=== PATIENT | male | born 1975 | race Caucasian/White ===

== ENCOUNTER 2017-01-01 20:09 | Emergency (ER) | payer SELFPAY ==
[~2017-01-01] VITALS: Ht 185.4 cm; Wt 149.7 kg
[~2017-01-01 20:09] MED LIST: AMIT10TA PO; DICL100T PO; HYDR-971 PO; NAPR500T PO; OXYC5CAP3 PO; PANT40TA5 PO
[2017-01-01 20:14] VITALS: BP 151/103
[2017-01-01] MEDS ORDERED: HYDROCODONE/APAP 5/325MG TABLET. PO ONE (21:00)
[2017-01-01] MEDS ORDERED: HYDR-971 PO (21:02)
[2017-01-01] MEDS ORDERED: CLIN-44 PO (21:02)
--- NOTE | 2017-01-01 21:02 | PHYS DOC ---
Past Medical History Past Medical History: Fibromyalgia, Gallstones, GERD, Migraines, Other Additional Past Medical Histor: chronic knee pain Past Surgical History: Cholecystectomy, Other Smoking: Less than 1pk/day Alcohol Use: None Drug Use: None Adult General Chief Complaint Chief Complaint: DENTAL PROBLEM HPI HPI Patient is a 41 year old male who presents with right mandible or dental pain and swelling starting today. He has a history of poor dentition with dental decay. He denies any fevers today. His PCP is Dr. Price. He is unsure of his dentist's name. Review of Systems Review of Systems Constitutional: Denies fever or chills. [] Eyes: Denies change in visual acuity, redness, or eye pain. [] HENT: Denies nasal congestion or sore throat. Reports dental pain and swelling and right ear pain. Integument: Denies rash or skin lesions. [] Neurologic: Denies headache, focal weakness or sensory changes. [] Allergies Allergies Allergies Coded Allergies Type Severity Reaction Last Updated Verified sertraline Allergy Intermediate Hives 10/12/16 Yes Physical Exam Physical Exam Constitutional: Well developed, well nourished, no acute distress, non-toxic appearance. [] HENT: Normocephalic, atraumatic, bilateral external ears normal, oropharynx moist, no oral exudates, nose normal. Bilateral TMs without erythema or bulging. There is no posterior pharyngeal erythema or tonsillar edema. There is widespread dental decay with multiple previously extracted teeth. There is gingival edema without dental abscess of the right mandible. Eyes: PERRLA, EOMI, conjunctiva normal, no discharge. [] Neck: Normal range of motion, no tenderness, supple, no stridor. [] Skin: Warm, dry, no erythema, no rash. [] Neurologic: Alert and oriented X 3, normal motor function, normal sensory function, no focal deficits noted. [] Psychologic: Affect normal, judgement normal, mood normal. [] Current Patient Data Vital Signs Vital Signs Date Time Temp Pulse Resp B/P Pulse Ox O2 Delivery O2 Flow Rate FiO2 01/01/17 20:14 98.8 94 18 97 Room Air 98.8 EKG EKG [] Radiology/Procedures Radiology/Procedures [] Course & Med Decision Making Course & Med Decision Making Pertinent Labs and Imaging studies reviewed. (See chart for details) [] Dragon Disclaimer Dragon Disclaimer This electronic medical record was generated, in whole or in part, using a voice recognition dictation system. Departure Departure Impression: Primary Impression: Gingival abscess Disposition: 01 HOME, SELF-CARE Condition: STABLE Referrals: SAMIRA PRICE DO (PCP) Patient Instructions: Dental Abscess Additional Instructions: Please complete all the prescribed antibiotics, even if your tooth is feeling better. Please take the prescribed pain medication as directed. Do not drive or operate heavy machinery while taking pain medication. Please follow-up with your dentist as soon as possible. Return to the emergency department if you have any new or concerning symptoms. Scripts Hydrocodone/Apap 5-325 (Ventura 5-325 Tablet)1 Each Tablet1 Tab PO PRN Q6HRS PRN PAIN #20 TAB Prov:KAELYN BYERS 01/01/17 Clindamycin Hcl 150 Mg Capsule2 Cap PO QID 10 Days Prov:KAELYN BYERS 01/01/17 KAELYN BYERS Jan 01, 2017 21:02
== END 2017-01-01 21:22 | disposition home or self-care (01) ==
LOC: ER 20:09
DX: K05.219 Aggressive periodontitis, localized, unspecified severity (principal); M79.7 Fibromyalgia; F17.200 Nicotine dependence, unspecified, uncomplicated; Z88.8 Allergy status to other drugs, medicaments and biological substances
CPT/HCPCS: 99283

== ENCOUNTER 2017-02-13 18:04 | Emergency (ER) | payer SELFPAY ==
[~2017-02-13] VITALS: Ht 185.4 cm; Wt 145.1 kg
[~2017-02-13 18:04] MED LIST changes: +CLIN-44 PO
[2017-02-13 18:18] VITALS: BP 137/90
[2017-02-13] MEDS ORDERED: NAPR500T3 PO (18:43)
[2017-02-13] MEDS ORDERED: CYCL10TA2 PO (18:43)
--- NOTE | 2017-02-13 18:43 | PHYS DOC ---
Past Medical History Past Medical History: Fibromyalgia, Gallstones, GERD, Migraines, Other Additional Past Medical Histor: chronic knee pain Past Surgical History: Cholecystectomy, Other Alcohol Use: None Drug Use: None Adult General Chief Complaint Chief Complaint: SHOULDER INJURY [facility] HPI Patient is a 41 year old male presents emergency department stating that he is having right shoulder pain. He has been seen here and to previous episodes and 2016 for right shoulder pain and discomfort. Patient states that he was trying to pull himself away from the table impression himself up when he developed the pain and discomfort. He states that the pain is located in the right shoulder to clavicle area into the upper back area. He states that he had tried to take cyclobenzaprine for a few days in which she states did not help. It only been taking them twice a day. He states that he take naproxen for 3 days without relief as well. Patient denies any previous injury or discomfort with the shoulder in the past. He denies any numbness or tingling into the lower extremities. He has equal strength in sharepoint manager bilaterally. Patient with good sensation noted. Patient is right-hand dominant. Review of Systems Review of Systems Constitutional: Denies fever or chills [] Eyes: Denies change in visual acuity, redness, or eye pain [] HENT: Denies nasal congestion or sore throat [] Respiratory: Denies cough or shortness of breath [] Cardiovascular: No additional information not addressed in HPI [] GI: Denies abdominal pain, nausea, vomiting, bloody stools or diarrhea [] : Denies dysuria or hematuria [] Musculoskeletal: Denies back pain. C/o right shoulder pain Integument: Denies rash or skin lesions [] Neurologic: Denies headache, focal weakness or sensory changes [] Allergies Allergies Allergies Coded Allergies Type Severity Reaction Last Updated Verified No Known Drug Allergies 02/13/17 No Physical Exam Physical Exam Constitutional: Well developed, well nourished, no acute distress, non-toxic appearance. [] HENT: Normocephalic, atraumatic, bilateral external ears normal, oropharynx moist, no oral exudates, nose normal. [] Eyes: PERRLA, EOMI, conjunctiva normal, no discharge. [] Neck: Normal range of motion, no tenderness, supple, no stridor. [] Cardiovascular:Heart rate regular rhythm Lungs & Thorax: No respiratory distress noted Skin: Warm, dry, no erythema, no rash. [] Back: No tenderness Extremities: Right shoulder/right upper back tenderness, no cyanosis, no clubbing, ROM intact, no edema. Patient with decreased range of motion of the right shoulder. Equal sharepoint manager noted bilaterally. Peripheral pulses 2+ cap refill brisk less than 2 seconds. Neurologic: Alert and oriented X 3, normal motor function, normal sensory function, no focal deficits noted. [] Psychologic: Affect normal, judgement normal, mood normal. [] Current Patient Data Vital Signs Vital Signs Date Time Temp Pulse Resp B/P Pulse Ox O2 Delivery O2 Flow Rate FiO2 02/13/17 18:18 98.1 78 20 98 Room Air 98.1 EKG EKG [] Radiology/Procedures Radiology/Procedures [] Course & Med Decision Making Course & Med Decision Making Pertinent Labs and Imaging studies reviewed. (See chart for details) Right shoulder x-ray was negative for any bony abnormalities per Dr. Prado. Patient was instructed for range of motion activity for the right shoulder. He' ll be placed in a sling with recommendations to take his arm out of the sling 3 times a day and provide active range of motion. Patient was also encouraged take Flexeril for pain and discomfort he was instructed this medication will cause drowsiness do not take any be alert and oriented. He'll be provided with a prescription for naproxen. Ice packs on 20 minutes off 20 minutes several times a day. He'll be provided with orthopedic name and number to follow up with. Patient agrees with discharge instructions treatment regimens and follow- up recommendations. Signs and symptoms to return back to emergency department as been provided. [] Dragon Disclaimer Dragon Disclaimer This electronic medical record was generated, in whole or in part, using a voice recognition dictation system. Departure Departure Impression: Primary Impression: Sprain of right acromioclavicular joint Disposition: 01 HOME, SELF-CARE Condition: STABLE Referrals: SAMIRA ALFARO DO (PCP) JOVITA MACIEL MD Patient Instructions: Arm Sling Use-Brief, Shoulder Pain, [id number] Additional Instructions: Your x-rays were negative for any bony abnormalities. Ice packs on 20 minutes off 20 minutes several times a day. Flexeril will cause drowsiness don't take any be alert and oriented. Patient's as prescribed. Wear the sling as directed until you follow-up with orthopedic. Take the arm out of the sling and perform active range of motion 3 times a day. Follow-up with orthopedic in the next week. Return back to emergency department for signs and symptoms of become worse. Scripts Naproxen 500 Mg Tablet1 Tab PO BID #60 TAB Prov:SANCHEZ GIBBONS APRN 02/13/17 Cyclobenzaprine Hcl 10 Mg [id number] Mg PO TID #30 TAB Prov:SANCHEZ GIBBONS APRN 02/13/17 SANCHEZ GIBBONS APRN Feb 13, 2017 18:43
--- NOTE | 2017-02-14 07:27 | RAD ---
Right shoulder radiographs History: Right shoulder pain after injury. Comparison: None. Findings: AP internal rotation, AP external rotation, or scapular Y-view of the right shoulder. No acute fracture or dislocation is identified. Impression: No acute osseous traumatic injury identified.
== END 2017-02-13 18:51 | disposition home or self-care (01) ==
LOC: ER 18:04
DX: S43.51XA Sprain of right acromioclavicular joint, initial encounter (principal); K21.9 Gastro-esophageal reflux disease without esophagitis; M79.7 Fibromyalgia; G89.29 Other chronic pain; G43.909 Migraine, unspecified, not intractable, without status migrainosus; Z90.49 Acquired absence of other specified parts of digestive tract; X58.XXXA Exposure to other specified factors, initial encounter; Y93.89 Activity, other specified; Y99.8 Other external cause status; Y92.89 Other specified places as the place of occurrence of the external cause
CPT/HCPCS: 73030; 99284

== ENCOUNTER 2017-04-02 12:40 | Emergency (ER) | payer SELFPAY ==
[~2017-04-02] VITALS: Ht 185.4 cm; Wt 147.5 kg
[~2017-04-02 12:40] MED LIST changes: -CLIN-44 PO; +CLIN150C14 PO; +CYCL10TA2 PO; +NAPR500T3 PO; +OXYC5CAP PO; -OXYC5CAP3 PO
[2017-04-02 13:18] VITALS: BP 139/87
[2017-04-02] MEDS ORDERED: fentaNYL PF VIAL 100 MCG/2 ML VIAL IV ONE (13:30)
--- NOTE | 2017-04-02 13:34 | EKG ---
[facility] [address] [place] [address] Test Date: 2017-04-02 Test Time: 13:20:47 Pat Name: KATHERINE RAY Department: Room: Gender: M Security And Privacy Consultant: : 1975 Requested By: ADRIAN HALL Order Number: [id number] Reading MD: Db Jacobo Measurements Intervals [place] Rate: 71 P: 24 NM: 142 QRS: -29 QRSD: 104 T: 43 QT: 388 QTc: 426 Interpretive Statements SINUS RHYTHM Electronically Signed On 04-02-2017 16:58:47 CDT by Db Jacobo
[2017-04-02 13:52] LABS: BASO # 0.1 x10^3/uL (0.0-0.2); BASO % 1 % (0-3); EOS % 1 % (0-3); HEMATOCRIT 46.6 % (39.0-53.0); HEMOGLOBIN 16.4 g/dL (13.0-17.5); LYMPH # 1.9 x10^3/uL (1.0-4.8); LYMPH % 16 % (24-48); MEAN CORPUSCULAR HEMOGLOBIN 32 pg (25-35); MEAN CORPUSCULAR HGB CONC 35 g/dL (31-37); MEAN CORPUSCULAR VOLUME 90 fL (79-100); MONO % 8 % (0-9); NEUT % 74 % (31-73); PLATELET COUNT 226 x10^3/uL (140-400); RED CELL DISTRIBUTION WIDTH 14.1 % (11.5-14.5); WHITE BLOOD COUNT 11.7 x10^3/uL (4.0-11.0)
[2017-04-02] MEDS ORDERED: FAMO-63 PO (14:58)
[2017-04-02] MEDS ORDERED: POLY119P4 PO (14:58)
--- NOTE | 2017-04-02 15:21 | PHYS DOC ---
Past Medical History Past Medical History: Arthritis, Fibromyalgia, Gallstones, GERD, Migraines, Other Additional Past Medical Histor: chronic knee pain Past Surgical History: Cholecystectomy, Other Alcohol Use: None Drug Use: None Adult General Chief Complaint Chief Complaint: ABDOMINAL PAIN HPI HPI Patient is a 41 year old male who presents with 1month + of abdominal pain. He states the pain is intermittent, moves in location, not appearing to come on by anything or relieved by anything. Some nausea, no vomiting. Reports small hard stool today, large amounts of gas. Denies taking anything for his symptoms. Was going to see his doctor today but recommended to come to the Ed. No fevers, pt reports dark stool x 1 , >1 week ago. Review of Systems Review of Systems Constitutional: Denies fever or chills [] Eyes: Denies change in visual acuity, redness, or eye pain [] HENT: Denies nasal congestion or sore throat [] Respiratory: Denies cough or shortness of breath [] Cardiovascular: Reported short R side chest pain upon arrival, self resolved in minutes GI: per hpi : Denies dysuria or hematuria [] Musculoskeletal: Denies back pain or joint pain [] Integument: Denies rash or skin lesions [] Neurologic: Denies headache, focal weakness or sensory changes [] Current Medications Current Medications Current Medications Medications (Trade) Dose Ordered Sig/Srinath Start Time Stop Time Status Last Admin Dose Admin Fentanyl Citrate (Fentanyl 2ml Vial) 75 mcg 1X ONCE 04/02/17 13:30 04/02/17 13:31 DC 04/02/17 13:59 75 MCG Allergies Allergies Allergies Coded Allergies Type Severity Reaction Last Updated Verified No Known Drug Allergies 02/13/17 No Physical Exam Physical Exam Constitutional: Well developed, well nourished, no acute distress, non-toxic appearance. obese HENT: Normocephalic, atraumatic, bilateral external ears normal, oropharynx moist, no oral exudates, nose normal. [] Eyes: PERRLA, EOMI, conjunctiva normal, no discharge. [] Neck: Normal range of motion, no tenderness, supple, no stridor. [] Cardiovascular:Heart rate regular regular rhythm, no murmur [] Lungs & Thorax: Bilateral breath sounds clear to auscultation , no wheeze or crackles Abdomen: Bowel sounds normal, soft, mild ttp in epigastric region, no guarding or peritoneal signs, mild pain bilateral lower abdomen, no distention Skin: Warm, dry, no erythema, no rash. [] Back: No tenderness, no CVA tenderness. [] Extremities: No tenderness, no cyanosis, no clubbing, ROM intact, no edema. [] Neurologic: Alert and oriented X 3, normal motor function, normal sensory function, no focal deficits noted. [] Psychologic: Affect normal, judgement normal, mood normal. [] Current Patient Data Vital Signs Vital Signs Date Time Temp Pulse Resp B/P (MAP) Pulse Ox O2 Delivery O2 Flow Rate FiO2 04/02/17 13:59 18 95 Room Air 04/02/17 13:18 98.0 88 139/87 (104) 98.0 Lab Values Laboratory Tests Test 04/02/17 13:40 White Blood Count 11.7 x10^3/uL (4.0-11.0) H Red Blood Count 5.20 x10^6/uL (4.30-5.70) Hemoglobin 16.4 g/dL (13.0-17.5) Hematocrit 46.6 % (39.0-53.0) Mean Corpuscular Volume 90 fL (79-100) Mean Corpuscular Hemoglobin 32 pg (25-35) Mean Corpuscular Hemoglobin Concent 35 g/dL (31-37) Red Cell Distribution Width 14.1 % (11.5-14.5) Platelet Count 226 x10^3/uL (140-400) Neutrophils (%) (Auto) 74 % (31-73) H Lymphocytes (%) (Auto) 16 % (24-48) L Monocytes (%) (Auto) 8 % (0-9) Eosinophils (%) (Auto) 1 % (0-3) Basophils (%) (Auto) 1 % (0-3) Neutrophils # (Auto) 8.6 x10^3uL (1.8-7.7) H Lymphocytes # (Auto) 1.9 x10^3/uL (1.0-4.8) Monocytes # (Auto) 0.9 x10^3/uL (0.0-1.1) Eosinophils # (Auto) 0.1 x10^3/uL (0.0-0.7) Basophils # (Auto) 0.1 x10^3/uL (0.0-0.2) Lipase 89 U/L (73-393) Laboratory Tests 04/02/17 13:40 EKG EKG 71 bpm, sinus, normal axis, normal intervals, no ST elevation or depression, nonischemic T waves, interpreted by me [] Radiology/Procedures Radiology/Procedures [] Course & Med Decision Making Course & Med Decision Making Pertinent Labs and Imaging studies reviewed. (See chart for details) Pt does not appear to have an acute abdomen. Pt refused rectal exam. Labs unremarkable. I discussed need to f/u with PCP and see GI, likely needs EGD, possibly colonscopy. Emergent CT abd not indicated and recommend pt see PCP closely to continue workup. DC'd with RX for miralax for constipation and pepcid for possible GERD. Dragon Disclaimer Dragon Disclaimer This electronic medical record was generated, in whole or in part, using a voice recognition dictation system. Departure Departure Impression: Primary Impression: Abdominal pain Disposition: HOME, SELF-CARE Patient Instructions: Constipation, Adult, [id number], Gastroesophageal Reflux Disease, Adult, [id number] Scripts Polyethylene Glycol 3350 (MIRALAX) 119 Gm Powder 17 GM PO DAILY Y for CONSTIPATION, #527 GM Prov: ADRIAN HALL MD 04/02/17 Famotidine (PEPCID) 20 Mg Tablet 20 MG PO BID, #40 TAB Prov: ADRIAN HALL MD 04/02/17 ADRIAN HALL MD Apr 02, 2017 15:21
== END 2017-04-02 15:43 | disposition home or self-care (01) ==
LOC: ER 12:40
DX: R10.13 Epigastric pain (principal); K21.9 Gastro-esophageal reflux disease without esophagitis; M79.7 Fibromyalgia; G43.909 Migraine, unspecified, not intractable, without status migrainosus; M19.90 Unspecified osteoarthritis, unspecified site; G89.29 Other chronic pain; Z90.49 Acquired absence of other specified parts of digestive tract
CPT/HCPCS: 36415; 80047; 83690; 85027; 93005; 96374; 99285; J3010

== ENCOUNTER → 2017-04-11 | Outpatient (CLI) | payer OTHER ==
[2017-04-02 13:18] VITALS: BP 139/87
[~2017-04-11] MED LIST changes: +FAMO-63 PO; +POLY119P4 PO
--- NOTE | 2017-04-11 09:00 | KCIC ---
MRI study of the right knee without contrast Clinical indications: Chronic right knee pain. Pain present for 2 years. Pain is located posteriorly. Intermittent swelling. Tender medial collateral ligament on examination. TECHNIQUE: Noncontrast MRI sequences of the right knee were performed in all 3 planes. COMPARISON: None available. FINDINGS: The anterior and posterior cruciate ligaments are intact. The quadriceps and patellar tendons are intact. There is an inferior articular surface tear of the anterior horn of the lateral meniscus. This extends into the body of the lateral meniscus. No articular surface tear of the medial meniscus is seen. The iliotibial band and lateral collateral ligament complex and popliteus tendon are intact. No posterior lateral corner injury is seen. The medial collateral ligament is intact without edema. No meniscal capsular separation is seen. No bone contusion or marrow infiltrative process or fracture is seen. There is mild degenerative spurring of the medial tibiofemoral joint compartment. No other focal osteochondral abnormality of the medial tibiofemoral joint compartment is seen. There is moderate chondromalacia of the lateral tibiofemoral joint compartment. There is mild degenerative spurring of the lateral tibiofemoral joint compartment. Mild lateral subluxation of the patella is seen. There is mild chondromalacia patellae of the lateral patellar facet and apex without significant articular cartilage defect. The trochlear articular cartilage is unremarkable. The medial and lateral retinacular ligaments are intact. No distended Justin's cyst is seen. No significant knee joint effusion is seen. No loose osteochondral body is evident. No muscle edema is seen. IMPRESSION: Tear of the lateral meniscus. 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 Mild degenerative spurring of the medial tibiofemoral joint compartment. Mild chondromalacia patellae. There is mild lateral subluxation of the patella. The trochlear groove to tibial tubercle distance is 17 mm which is normal. Electronically signed by: Fish Renner MD (04/11/2017 8:56 AM)
== END | disposition home or self-care (01) ==
LOC: KCIC MRI 07:47
PROVIDERS: ATTEND Family Medicine
DX: M17.11 Unilateral primary osteoarthritis, right knee (principal); G89.29 Other chronic pain
CPT/HCPCS: 73721

== ENCOUNTER → 2017-04-15 | Outpatient (CLI) | payer OTHER ==
[2017-04-02 13:18] VITALS: BP 139/87
--- NOTE | 2017-04-15 13:17 | KCIC ---
MR of the right shoulder HISTORY: Right shoulder pain after a fall one year ago. Chronic right shoulder pain and decreased range of motion. TECHNIQUE: Routine multiplanar sequences are obtained. FINDINGS: Acromioclavicular joint is mildly degenerative. Mild thickening and signal within the rotator cuff compatible with mild tendinosis. No measurable rotator cuff tear. No significant subdeltoid bursal fluid accumulation. No significant joint effusion. No advanced primary osteoarthritis. Small inferior para labral cyst, contacts the anteroinferior labrum at about the 5-6:00 location. Mild signal identified within the anteroinferior labrum and a tear is suspected, although note is is suboptimally evaluated without arthrographic technique. Mild degenerative signal at the superior labrum. Biceps tendon is intact. No bone lesion or acute fracture. No acute soft tissue injury. IMPRESSION: 1. Small inferior para labral cyst, suspect anteroinferior or inferior labral tear. MR arthrography could confirm if indicated. 2. Mild rotator cuff tendinosis without evidence of a tear. Electronically signed by: Rommel Villafana MD (04/15/2017 12:52 PM)
== END | disposition home or self-care (01) ==
LOC: KCIC MRI 09:54
PROVIDERS: ATTEND Family Medicine
DX: M25.511 Pain in right shoulder (principal); G89.29 Other chronic pain
CPT/HCPCS: 73221

== ENCOUNTER 2017-06-27 19:48 | Emergency (ER) | payer SELFPAY ==
[~2017-06-27] VITALS: Ht 185.4 cm; Wt 145.1 kg
[2017-06-27] MEDS ORDERED: IBUPROFEN 800 MG TABLET. PO ONE ×2 (21:06→21:15)
[2017-06-27 21:15] LABS: BASO # 0.1 x10^3/uL (0.0-0.2); BASO % 0 % (0-3); EOS % 0 % (0-3); HEMATOCRIT 47.2 % (39.0-53.0); HEMOGLOBIN 16.1 g/dL (13.0-17.5); LYMPH # 1.2 x10^3/uL (1.0-4.8); LYMPH % 7 % (24-48); MEAN CORPUSCULAR HEMOGLOBIN 31 pg (25-35); MEAN CORPUSCULAR HGB CONC 34 g/dL (31-37); MEAN CORPUSCULAR VOLUME 92 fL (79-100); MONO % 7 % (0-9); NEUT % 85 % (31-73); PLATELET COUNT 195 x10^3/uL (140-400); RED BLOOD COUNT 5.13 x10^6/uL (4.30-5.70); RED CELL DISTRIBUTION WIDTH 13.5 % (11.5-14.5); WHITE BLOOD COUNT 17.6 x10^3/uL (4.0-11.0)
[2017-06-27] MEDS ORDERED: IV NORMAL SALINE 1000ML BAG 1,000 ML IV SCH (21:15)
[2017-06-27] MEDS ORDERED: ACETAMINOPHEN 500 MG TABLET PO ONE (21:15)
[2017-06-27 21:25] LABS: CALCIUM 8.8 mg/dL (8.5-10.1); CREATININE 1.2 mg/dL (0.7-1.3); GFR 66.7; POTASSIUM 3.6 mmol/L (3.5-5.1)
--- NOTE | 2017-06-27 22:21 | ED.ADGEN ---
Past Medical History Past Medical History: Arthritis, Fibromyalgia, Gallstones, GERD, Migraines, Other Additional Past Medical Histor: chronic knee pain Past Surgical History: Cholecystectomy, Other Alcohol Use: None Drug Use: None Adult General Chief Complaint Chief Complaint: FEVER HPI HPI Patient is a 41 year old man, history of GERD, fibromyalgia, who presents to the emergency department with complaint of fever, chills, body aches, sore throat that began late last night early this morning. Patient states she took Advil this morning, has not taken any medications that time, states he's been experiencing pain all the joints, along with alternating fevers and chills, and sore throat, denies any rhinorrhea, states he's felt slightly nauseous but denies vomiting, also has mild cough isn't present over the past several days. Nonproductive, denies any sick contacts or exposures, denies any swelling extremities, states he does have a small rash noted in his left groin that he noted this morning. No recent travel or surgery, no sick contacts or exposures, no similar symptoms previously. He states he had temperature at home of 103.4, currently in the ED temperature is 100.9, he has not taken any antipyretics since this morning as stated, denies taking any other medications. No ingestions. Review of Systems Review of Systems Constitutional: Alternating fevers and chills since early this morning. Eyes: Denies change in visual acuity. [] HENT: Denies nasal congestion, complaining of sore throat that began last night. Respiratory: Cough is nonproductive over the last several days, no shortness of breath. Cardiovascular: Denies chest pain or edema. [] GI: Denies abdominal pain, vomiting, bloody stools or diarrhea. Nausea.[] : Denies dysuria. [] Musculoskeletal: Denies back pain or joint pain. [] Integument: Denies rash. [] Neurologic: Denies headache, focal weakness or sensory changes. [] Endocrine: Denies polyuria or polydipsia. [] Lymphatic: Denies swollen glands. [] Psychiatric: Denies depression or anxiety. [] Current Medications Current Medications Current Medications Medications (Trade) Dose Ordered Sig/Srinath Start Time Stop Time Status Last Admin Dose Admin Acetaminophen (Tylenol) 1,000 mg 1X ONCE 06/27/17 21:15 06/27/17 21:16 DC 06/27/17 21:09 1,000 MG Ibuprofen (Motrin) 800 mg STK-MED ONCE 06/27/17 21:06 06/27/17 21:07 DC Nystatin (Nystop) 1 alida 1X ONCE 06/27/17 23:45 06/27/17 23:46 UNV Sodium Chloride 1,000 ml @ 1,000 mls/hr Q1H 06/27/17 21:15 06/27/17 22:14 DC 06/27/17 21:09 1,000 MLS/HR Allergies Allergies Allergies Coded Allergies Type Severity Reaction Last Updated Verified No Known Drug Allergies 02/13/17 No Physical Exam Physical Exam Constitutional: Well developed, well nourished, no acute distress, non-toxic appearance. [] HENT: Normocephalic, atraumatic, bilateral external ears normal, oropharynx moist, oropharynx is injected, mild turbinate swelling bilaterally, with clear rhinorrhea, no oral exudates, nose normal. [] Eyes: PERRLA, EOMI, conjunctiva normal, no discharge. [] Neck: Normal range of motion, no tenderness, supple, no stridor. [] Cardiovascular:Heart rate regular rhythm, no murmur, S1, S2, rubs or gallops. [] Lungs & Thorax: Bilateral breath sounds clear to auscultation, no wheezing, rhonchi, rales. No chest or crepitus or tenderness. [] Abdomen: Bowel sounds normal, soft, obese, no rebound, rigidity, no guarding, no tenderness, no masses, no pulsatile masses. [] Skin: Warm, dry, no erythema, patient has a small area of heat rash, with possible yeast located in the left groin. No other lesions or abnormality identified. Back: No tenderness, no CVA tenderness. [] Extremities: No tenderness, no cyanosis, no clubbing, ROM intact, no edema. Negative Homans sign. [] Neurologic: Alert and oriented X 3, normal motor function, normal sensory function, no focal deficits noted. [] Psychologic: Affect normal, judgement normal, mood normal. [] Current Patient Data Vital Signs Vital Signs Date Time Temp Pulse Resp B/P (MAP) Pulse Ox O2 Delivery O2 Flow Rate FiO2 06/27/17 20:25 100.9 92 20 97 Room Air 100.9 Lab Values Laboratory Tests Test 06/27/17 21:00 06/27/17 22:24 White Blood Count 17.6 x10^3/uL (4.0-11.0) H Red Blood Count 5.13 x10^6/uL (4.30-5.70) Hemoglobin 16.1 g/dL (13.0-17.5) Hematocrit 47.2 % (39.0-53.0) Mean Corpuscular Volume 92 fL (79-100) Mean Corpuscular Hemoglobin 31 pg (25-35) Mean Corpuscular Hemoglobin Concent 34 g/dL (31-37) Red Cell Distribution Width 13.5 % (11.5-14.5) Platelet Count 195 x10^3/uL (140-400) Neutrophils (%) (Auto) 85 % (31-73) H Lymphocytes (%) (Auto) 7 % (24-48) L Monocytes (%) (Auto) 7 % (0-9) Eosinophils (%) (Auto) 0 % (0-3) Basophils (%) (Auto) 0 % (0-3) Neutrophils # (Auto) 14.9 x10^3uL (1.8-7.7) H Lymphocytes # (Auto) 1.2 x10^3/uL (1.0-4.8) Monocytes # (Auto) 1.3 x10^3/uL (0.0-1.1) H Eosinophils # (Auto) 0.1 x10^3/uL (0.0-0.7) Basophils # (Auto) 0.1 x10^3/uL (0.0-0.2) Sodium Level 140 mmol/L (136-145) Potassium Level 3.6 mmol/L (3.5-5.1) Chloride Level 102 mmol/L (98-107) Carbon Dioxide Level 32 mmol/L (21-32) Anion Gap 6 (6-14) Blood Urea Nitrogen 8 mg/dL (8-26) Creatinine 1.2 mg/dL (0.7-1.3) Estimated GFR (Cockcroft-Gault) 66.7 Glucose Level 107 mg/dL (70-99) H Calcium Level 8.8 mg/dL (8.5-10.1) Urine Collection Type Unknown Urine Color Yellow Urine Clarity Cloudy Urine pH 6.0 Urine Specific [place] 1.025 Urine Protein Negative mg/dL (NEG-TRACE) Urine Glucose (UA) Negative mg/dL (NEG) Urine Ketones (Stick) Negative mg/dL (NEG) Urine Blood Negative (NEG) Urine Nitrite Negative (NEG) Urine Bilirubin Negative (NEG) Urine Urobilinogen Dipstick 0.2 mg/dL (0.2 mg/dL) Urine Leukocyte Esterase Negative (NEG) Urine RBC 0 /HPF (0-2) Urine WBC Occ /HPF (0-4) Urine Squamous Epithelial Cells Few /LPF Urine Bacteria 0 /HPF (0-FEW) Urine Mucus Marked /LPF Laboratory Tests 06/27/17 21:00 Laboratory Tests 06/27/17 21:00 EKG EKG ECG: Rhythm strip: Heart rate 91 bpm, sinus rhythm, no ectopy. As interpreted by me.[] Radiology/Procedures Radiology/Procedures Chest x-ray: PA and lateral 2 view: Normal cardiopulmonary silhouette, no infiltrates, no effusions, no pneumothorax, no soft tissue or bony abnormalities identified. As interpreted by me. Course & Med Decision Making Course & Med Decision Making Pertinent Labs and Imaging studies reviewed. (See chart for details) Patient with temperature of 100.9 in the emergency department, orally, noted to have a mildly injected oropharynx without exudates, mild rhinorrhea and nasal congestion. Small area of heat rash, consistent with [place] noted in the inner left thigh, patient does not have any history of diabetes or other immune compromised state. Laboratory studies were obtained to further elucidate his symptoms to rule out any occult abnormalities. Patient with no neck rigidity, no headache, no other concerning for identified. Strep swab is negative. Laboratory studies reveal a leukocytosis of 17, with no left shift and bandemia other concerning findings, laboratory studies reveal mild hyperglycemia, otherwise unremarkable. Patient received IV fluids in the ED, along with acetaminophen and ibuprofen orally, without issue. Repeat temperature is 98.9, patient states he is feeling much better, is defervesced in the emergency department. He states he is feeling tired, and is ready to go home. Discussed with patient that there is no indication for antibiotics identified on his examination today, symptoms consistent with a viral illness. Did discuss additional symptoms occur develop with a viral illness, use [id number] acetaminophen and ibuprofen, importance of staying well-hydrated, and concerning symptoms that prompt return to the ED. Patient voiced understanding and agreement with plan as stated, discharged home in stable condition. Dragon Disclaimer Dragon Disclaimer This electronic medical record was generated, in whole or in part, using a voice recognition dictation system. Departure Impression: Primary Impression: Fever Disposition: 01 HOME, SELF-CARE Condition: IMPROVED KAELYN JOHNSTON DO Jun 27, 2017 22:21
[2017-06-27 22:32] LABS: BILIRUBIN,URINE NEGATIVE (NEG); GLUCOSE,URINE NEGATIVE (NEG); NITRITE,URINE NEGATIVE (NEG); PROTEIN,URINE NEGATIVE (NEG-TRACE); UROBILINOGEN,URINE 0.2 mg/dL (0.2 mg/dL)
[2017-06-27 22:36] LABS: BACTERIA,URINE 0 /HPF (0-FEW); RBC,URINE 0 /HPF (0-2); SQUAMOUS EPITHELIAL CELL,UR FEW /LPF; WBC,URINE OCC /HPF (0-4)
[2017-06-27] MEDS ORDERED: NYSTATIN TOPICAL POWDER 15GM BOTTLE. TP ONE (23:45)
[2017-06-28 00:05] VITALS: BP 117/71
[2017-06-28 07:30] LABS: NEGATIVE OBC STREP NEG; POSITIVE OBC STREP POS
--- NOTE | 2017-06-28 07:57 | RAD ---
Chest, 2 views, 06/27/2017: History: Cough and fever The heart size and pulmonary vascularity are normal. The lungs are clear. There is no evidence of pleural fluid. IMPRESSION: No acute cardiopulmonary abnormality is detected.
== END 2017-06-28 00:06 | disposition home or self-care (01) ==
LOC: ER 19:48
DX: R50.9 Fever, unspecified (principal); J02.9 Acute pharyngitis, unspecified; M79.1 Myalgia; G89.29 Other chronic pain; K21.9 Gastro-esophageal reflux disease without esophagitis; M79.7 Fibromyalgia; G43.909 Migraine, unspecified, not intractable, without status migrainosus; M19.90 Unspecified osteoarthritis, unspecified site
CPT/HCPCS: 36415; 71020; 80048; 81001; 85025; 87070; 87880; 96360; 96361; 99285; J7030

== ENCOUNTER 2017-10-20 13:23 | Emergency (ER) | payer SELFPAY | END 2017-10-20 14:02 | disposition home or self-care (01) | LOC: ER 13:23 | DX: M77.9 Enthesopathy, unspecified (principal); G89.29 Other chronic pain; M25.512 Pain in left shoulder; M25.511 Pain in right shoulder; M25.562 Pain in left knee; M25.561 Pain in right knee; M19.90 Unspecified osteoarthritis, unspecified site; K21.9 Gastro-esophageal reflux disease without esophagitis; M79.7 Fibromyalgia | CPT/HCPCS: 99282 ==

== ENCOUNTER 2017-12-07 00:47 | Emergency (ER) | payer SELFPAY | END 2017-12-07 03:47 | disposition home or self-care (01) | LOC: ER 00:47 | DX: M77.12 Lateral epicondylitis, left elbow (principal); M19.90 Unspecified osteoarthritis, unspecified site; M79.7 Fibromyalgia; K21.9 Gastro-esophageal reflux disease without esophagitis | CPT/HCPCS: 99283 ==

== ENCOUNTER 2018-06-23 13:37 | Emergency (ER) | payer SELFPAY ==
[~2018-06-23] VITALS: Ht 185.4 cm; Wt 145.1 kg
[~2018-06-23 13:37] MED LIST changes: +NAPR-514 PO; +NAPR-683 PO; -NAPR500T PO; -NAPR500T3 PO; +TRAM50TA PO
[2018-06-23 14:15] VITALS: BP 130/64
--- NOTE | 2018-06-23 15:02 | RAD ---
Indications: Pain and swelling of right hand for 2 weeks. FINDINGS: No acute fracture or dislocation or osteolytic process is evident. No radiopaque foreign body or soft tissue air is evident. IMPRESSION: No acute osseous abnormality. Electronically signed by: Fish Renner MD (06/23/2018 2:59 PM) [facility]
--- NOTE | 2018-06-23 15:32 | PHYS DOC ---
Past Medical History Past Medical History: Arthritis, Fibromyalgia, Gallstones, GERD, Migraines, Other Additional Past Medical Histor: chronic knee pain Past Surgical History: Cholecystectomy Alcohol Use: None Drug Use: None Adult General Chief Complaint Chief Complaint: HAND PROBLEM [facility] HPI Patient is a 42 year old male who presents with pain in his right wrist extending into his hand. He denies any known injury. The patient does have degenerative arthritis to his knees, hips and shoulders. Review of Systems Review of Systems Constitutional: Denies fever or chills [] Respiratory: Denies cough or shortness of breath [] Cardiovascular: No additional information not addressed in HPI [] GI: Denies abdominal pain, nausea, vomiting, bloody stools or diarrhea [] : Denies dysuria or hematuria [] Musculoskeletal: See history of present illness Integument: Denies rash or skin lesions [] Neurologic: Denies headache, focal weakness or sensory changes [] Endocrine: Denies polyuria or polydipsia [] All other systems were reviewed and found to be within normal limits, except as documented in this note. Allergies Allergies Allergies Coded Allergies Type Severity Reaction Last Updated Verified No Known Drug Allergies 02/13/17 No Physical Exam Physical Exam Constitutional: Well developed, well nourished, no acute distress, non-toxic appearance. [] Cardiovascular:Heart rate regular rhythm, no murmur [] Lungs & Thorax: Bilateral breath sounds clear to auscultation [] Abdomen: Bowel sounds normal, soft, no tenderness, no masses, no pulsatile masses. [] Skin: Warm, dry, no erythema, no rash. [] Back: No tenderness, no CVA tenderness. [] Extremities: Right hand and wrist tenderness with no deformity, erythema or ecchymosis noted, no edema noted, no cyanosis, no clubbing, ROM intact Neurologic: Alert and oriented X 3, normal motor function, normal sensory function, no focal deficits noted. [] Psychologic: Affect normal, judgement normal, mood normal. [] Current Patient Data Vital Signs Vital Signs Date Time Temp Pulse Resp B/P (MAP) Pulse Ox O2 Delivery O2 Flow Rate FiO2 06/23/18 14:15 97.9 81 18 130/64 (86) 97 Room Air 97.9 EKG EKG [] Radiology/Procedures Radiology/Procedures []PATIENT: KATHERINE RAY LACCOUNT: [id number]#: [id number] : 1975 LOCATION: ER AGE: 42 SEX: M EXAM STATUS: REG ER ORD. PHYSICIAN: BETTY FAULKNER APRN REASON: pain, unknown injury PROCEDURE: HAND RIGHT 3V Indications: Pain and swelling of right hand for 2 weeks. FINDINGS: No acute fracture or dislocation or osteolytic process is evident. No radiopaque foreign body or soft tissue air is evident. IMPRESSION: No acute osseous abnormality. Electronically signed by: Temo Renner MD (06/23/2018 2:59 PM) [facility] DICTATED and SIGNED BY: TEMO RENNER MD DATE: 06/23/18 9919 Course & Med Decision Making Course & Med Decision Making Pertinent Labs and Imaging studies reviewed. (See chart for details) []The patient needs to follow-up with his primary care provider for further evaluation of this chronic pain. Dragon Disclaimer Dragon Disclaimer This electronic medical record was generated, in whole or in part, using a voice recognition dictation system. Departure Departure Impression: Primary Impression: Hand pain Disposition: 01 HOME, SELF-CARE Condition: STABLE Referrals: SAMIRA ALFARO DO (PCP) Patient Instructions: Arthralgia, [id number] Additional Instructions: You may take ibuprofen or Tylenol for pain. Follow up with your primary care provider for further evaluation of this pain and possible evaluation for carpal tunnel syndrome. BETTY FAULKNER APRN Jun 23, 2018 15:32
== END 2018-06-23 15:58 | disposition home or self-care (01) ==
LOC: ER 13:37
DX: M25.531 Pain in right wrist (principal); M79.641 Pain in right hand; G89.29 Other chronic pain; M19.90 Unspecified osteoarthritis, unspecified site; K21.9 Gastro-esophageal reflux disease without esophagitis; G43.909 Migraine, unspecified, not intractable, without status migrainosus; Z90.49 Acquired absence of other specified parts of digestive tract
CPT/HCPCS: 73130; 99284

== ENCOUNTER 2018-10-18 00:25 | Emergency (ER) | payer SELFPAY ==
[~2018-10-18] VITALS: Ht 185.4 cm; Wt 149.7 kg
[~2018-10-18 00:25] MED LIST changes: +HYDR-3164 PO; -HYDR-971 PO
[2018-10-18] MEDS ORDERED: KETOROLAC 30 MG/ML VIAL. IM ONE (01:45)
[2018-10-18] MEDS ORDERED: ONDANSETRON ODT 4 MG TAB.RAPDIS. PO ONE (01:45)
[2018-10-18] MEDS ORDERED: IV NORMAL SALINE 1000ML BAG 1,000 ML IV ONE (02:00)
[2018-10-18] MEDS ORDERED: ONDANSETRON PF 4 MG/2 ML VIAL. IV ONE (02:00)
[2018-10-18 02:06] LABS: INFLUENZA A PATIENT POSITIVE (NEGATIVE); INFLUENZA B PATIENT NEGATIVE (NEGATIVE)
[2018-10-18 02:14] LABS: BASO # 0.1 x10^3/uL (0.0-0.2); BASO % 1 % (0-3); EOS % 0 % (0-3); HEMATOCRIT 46.5 % (39.0-53.0); HEMOGLOBIN 16.7 g/dL (13.0-17.5); LYMPH # 0.3 x10^3/uL (1.0-4.8); LYMPH % 2 % (24-48); MEAN CORPUSCULAR HEMOGLOBIN 33 pg (25-35); MEAN CORPUSCULAR HGB CONC 36 g/dL (31-37); MEAN CORPUSCULAR VOLUME 92 fL (79-100); MONO # 1.2 x10^3/uL (0.0-1.1); MONO % 9 % (0-9); NEUT # 10.9 x10^3uL (1.8-7.7); NEUT % 88 % (31-73); PLATELET COUNT 198 x10^3/uL (140-400); RED BLOOD COUNT 5.07 x10^6/uL (4.30-5.70); RED CELL DISTRIBUTION WIDTH 14.3 % (11.5-14.5); WHITE BLOOD COUNT 12.4 x10^3/uL (4.0-11.0)
[2018-10-18] MEDS ORDERED: KETOROLAC 15 MG/ML VIAL. IV ONE (02:15)
[2018-10-18] MEDS ORDERED: ONDA4TAB7 PO (02:18)
[2018-10-18] MEDS ORDERED: OSEL75CA PO (02:18)
--- NOTE | 2018-10-18 02:21 | RAD ---
AP portable chest 10/18/2018. Reason for exam: Fever, cough and congestion for a few days. Comparison is made with an exam of 06/27/2017. No infiltrate or effusion is seen. Heart size and pulmonary vascularity appear normal. IMPRESSION: No acute abnormality. Electronically signed by: Mart Morales Jr., MD (10/18/2018 2:17 AM) [facility]
[2018-10-18 02:22] VITALS: BP 110/75
[2018-10-18] MEDS ORDERED: OSELTAMIVIR 75 MG CAPSULE PO ONE (02:30)
[2018-10-18 02:31] LABS: CREATININE 1.3 mg/dL (0.7-1.3); GFR 60.5; POTASSIUM 3.8 mmol/L (3.5-5.1)
[2018-10-18 02:36] LABS: ALBUMIN 3.6 g/dL (3.4-5.0); ALBUMIN/GLOBULIN RATIO 0.8 (1.0-1.7); TOTAL BILIRUBIN 0.6 mg/dL (0.2-1.0)
--- NOTE | 2018-10-18 02:44 | PHYS DOC ---
Past Medical History Past Medical History: Arthritis, Fibromyalgia, Gallstones, GERD, Migraines, Other Additional Past Medical Histor: chronic knee pain Past Surgical History: Cholecystectomy Alcohol Use: None Drug Use: None Adult General Chief Complaint Chief Complaint: FLU SYMPTOM HPI HPI Patient is a 42 year old m with cc of flulike symptoms onset earlier today vomiting cough sore throat body aches high fever or sudden onset no sick contacts throat is very irritated. Review of Systems Review of Systems Constitutional: Eyes: Denies change in visual acuity, redness, or eye pain [] HENT: Denies nasal congestion or sore throat [] GI: Musculoskeletal: Integument: Denies rash or skin lesions [] Neurologic: Denies headache, focal weakness or sensory changes [] Endocrine: Denies polyuria or polydipsia [] All other systems were reviewed and found to be within normal limits, except as documented in this note. Current Medications Current Medications Current Medications Medications (Trade) Dose Ordered Sig/Srinaht Start Time Stop Time Status Last Admin Dose Admin Ketorolac Tromethamine (Toradol 15mg Vial) 15 mg 1X ONCE 10/18/18 02:15 10/18/18 02:17 DC 10/18/18 02:17 15 MG Ketorolac Tromethamine (Toradol 30mg Vial) 30 mg 1X ONCE 10/18/18 01:45 10/18/18 02:02 DC Ondansetron HCl (Zofran Odt) 4 mg 1X ONCE 10/18/18 01:45 10/18/18 02:02 DC Ondansetron HCl (Zofran) 4 mg 1X ONCE 10/18/18 02:00 10/18/18 02:17 DC 10/18/18 02:16 4 MG Oseltamivir Phosphate (Tamiflu) 75 mg 1X ONCE 10/18/18 02:30 10/18/18 02:32 DC Sodium Chloride 1,000 ml @ 1,000 mls/hr 1X ONCE 10/18/18 02:00 10/18/18 02:59 10/18/18 02:03 1,000 MLS/HR Allergies Allergies Allergies Coded Allergies Type Severity Reaction Last Updated Verified No Known Drug Allergies 02/13/17 No Physical Exam Physical Exam Constitutional: Well developed,flu appearing HENT: Normocephalic, atraumatic, bilateral external ears normal, oropharynx moist, no oral exudates, nose normal. [] Eyes: PERRLA, EOMI, conjunctiva normal, no discharge. [] Neck: Normal range of motion, no tenderness, supple, no stridor. [] Cardiovascular:tachy no murmur Lungs & Thorax: Bilateral breath sounds clear to auscultation [] Abdomen: Bowel sounds normal, soft, no tenderness, no masses, no pulsatile masses. [] Skin: Warm, dry, no erythema, no rash. [] Back: No tenderness, no CVA tenderness. [] Extremities: No tenderness, no cyanosis, no clubbing, ROM intact, no edema. [] Neurologic: Alert and oriented X 3, normal motor function, normal sensory function, no focal deficits noted. [] Psychologic: Affect normal, judgement normal, mood normal. [] Current Patient Data Vital Signs Vital Signs Date Time Temp Pulse Resp B/P (MAP) Pulse Ox O2 Delivery O2 Flow Rate FiO2 10/18/18 01:52 118 107/65 (79) 96 Room Air 10/18/18 01:12 99.0 22 99.0 Lab Values Laboratory Tests Test 10/18/18 01:20 10/18/18 02:00 Influenza Type A Antigen Positive (NEGATIVE) Influenza Type B Antigen Negative (NEGATIVE) Group A Streptococcus Rapid Negative (NEGATIVE) Sodium Level 134 mmol/L (136-145) L Potassium Level 3.8 mmol/L (3.5-5.1) Chloride Level 98 mmol/L (98-107) Carbon Dioxide Level 30 mmol/L (21-32) Anion Gap 6 (6-14) Blood Urea Nitrogen 11 mg/dL (8-26) Creatinine 1.3 mg/dL (0.7-1.3) Estimated GFR (Cockcroft-Gault) 60.5 BUN/Creatinine Ratio 8 (6-20) Glucose Level 121 mg/dL (70-99) H Calcium Level 9.0 mg/dL (8.5-10.1) Total Bilirubin Pending Aspartate Amino Transferase (AST) Pending Alanine Aminotransferase (ALT) Pending Alkaline Phosphatase Pending Total Protein Pending Albumin Pending Albumin/Globulin Ratio Pending Laboratory Tests 10/18/18 02:00 EKG EKG [] Radiology/Procedures Radiology/Procedures [] Impressions: cxr my read nego infiltrate or effusion is seen. Heart size and pulmonary vascularity appear normal. IMPRESSION: No acute abnormality. Electronically signed by: Mart Saucedo Jr., MD (10/18/2018 2:17 AM) [facility] DICTATED and SIGNED BY: MART SAUCEDO Jr, MD DATE: 10/18/18216 Course & Med Decision Making Course & Med Decision Making Pertinent Labs and Imaging studies reviewed. (See chart for details) influenza a positie iv fluids given for tachycardia iwth some imporvement tamiflu given cxr clear. reassurance and return precautions discussed [] Dragon Disclaimer Dragon Disclaimer This electronic medical record was generated, in whole or in part, using a voice recognition dictation system. Departure Departure Impression: Primary Impression: Influenza Disposition: 01 HOME, SELF-CARE Condition: STABLE Patient Instructions: Influenza, Adult Scripts Ondansetron Hcl (ZOFRAN) 4 Mg Tablet 4 MG PO PRN TID PRN for NAUSEA/VOMITING, #15 nausea/vomiting Prov: HORTENCIA CARRERO MD 10/18/18 Oseltamivir Phosphate (TAMIFLU) 75 Mg Capsule 1 CAP PO BID, #10 CAP Prov: HORTENCIA CARRERO MD 10/18/18 HORTENCIA CARRERO MD Oct 18, 2018 02:44
[2018-10-18 06:00] LABS: % ATYL 2 % (0-0); % MONOS 5 % (0-10); % SEGS 93 % (35-66)
[2018-10-18 06:01] LABS: PLT ESTIMATE ADEQUATE (ADEQUATE)
== END 2018-10-18 03:30 | disposition home or self-care (01) ==
LOC: ER 00:25
DX: J09.X2 Influenza due to identified novel influenza A virus with other respiratory manifestations (principal); R11.11 Vomiting without nausea; M19.90 Unspecified osteoarthritis, unspecified site; M79.7 Fibromyalgia; K21.9 Gastro-esophageal reflux disease without esophagitis; G43.909 Migraine, unspecified, not intractable, without status migrainosus; G89.29 Other chronic pain; M25.569 Pain in unspecified knee
CPT/HCPCS: 36415; 71045; 80053; 85007; 85025; 87070; 87804; 87880; 96361; 96374; 96375; 99284; J1885; J2405; J7030

== ENCOUNTER 2018-10-24 19:04 | Emergency (ER) | payer SELFPAY ==
[~2018-10-24] VITALS: Ht 185.4 cm; Wt 149.7 kg
[~2018-10-24 19:04] MED LIST changes: +ONDA4TAB7 PO; +OSEL75CA PO
[2018-10-24 19:30] VITALS: BP 161/84
[2018-10-24] MEDS ORDERED: VENTOLIN HFA18 GM INH (20:32)
[2018-10-24] MEDS ORDERED: PRED50TA PO (20:32)
[2018-10-24] MEDS ORDERED: AZIT250T PO (20:32)
[2018-10-24] MEDS ORDERED: BENZ100C PO (20:32)
--- NOTE | 2018-10-24 20:33 | PHYS DOC ---
Past Medical History Past Medical History: Arthritis, Fibromyalgia, Gallstones, GERD, Migraines, Other Additional Past Medical Histor: chronic knee pain Past Surgical History: Cholecystectomy Additional Information: 1 PPD Alcohol Use: None Drug Use: None Adult General Chief Complaint Chief Complaint: Congestion HPI HPI Patient is a 42 year old male with history of arthritis, fibromyalgia, acid reflex, who presents today complaining of cough productive in nature that has been going on for 1 week and got worse today when he tried to smoke. He states he was diagnosed with influenza a week ago. He states he has been down since then but today he got up and tried smoking and started coughing. He states he felt he had mucus in his throat. Patient denies any fever. He is requesting to be checked out to make sure he does not have pneumonia. Review of Systems Review of Systems Constitutional: Denies fever or chills [] Eyes: Denies change in visual acuity, redness, or eye pain [] HENT: Denies nasal congestion or sore throat [] Respiratory: Reports productive cough, denies shortness of breath [] Cardiovascular: No additional information not addressed in HPI [] GI: Denies abdominal pain, nausea, vomiting, bloody stools or diarrhea [] : Denies dysuria or hematuria [] Musculoskeletal: Denies back pain or joint pain [] Integument: Denies rash or skin lesions [] Neurologic: Denies headache, focal weakness or sensory changes [] All other systems were reviewed and found to be within normal limits, except as documented in this note. Allergies Allergies Allergies Coded Allergies Type Severity Reaction Last Updated Verified No Known Drug Allergies 02/13/17 No Physical Exam Physical Exam Constitutional: Well developed, well nourished, no acute distress, non-toxic appearance. [] HENT: Normocephalic, atraumatic, bilateral external ears normal, oropharynx moist, no oral exudates, nose normal. [] Eyes: PERRLA, EOMI, conjunctiva normal, no discharge. [] Neck: Normal range of motion, no tenderness, supple, no stridor. [] Cardiovascular:Heart rate regular rhythm, no murmur [] Lungs & Thorax: Bilateral breath sounds clear to auscultation [] Abdomen: Bowel sounds normal, soft, no tenderness, no masses, no pulsatile masses. [] Skin: Warm, dry, no erythema, no rash. [] Back: No tenderness, no CVA tenderness. [] Extremities: No tenderness, no cyanosis, no clubbing, ROM intact, no edema. [] Neurologic: Alert and oriented X 3, normal motor function, normal sensory function, no focal deficits noted. [] Psychologic: Affect normal, judgement normal, mood normal. [] Current Patient Data Vital Signs Vital Signs Date Time Temp Pulse Resp B/P (MAP) Pulse Ox O2 Delivery O2 Flow Rate FiO2 10/24/18 19:30 98.4 74 16 161/84 (109) 97 Room Air 98.4 EKG EKG [] Radiology/Procedures Radiology/Procedures [] Course & Med Decision Making Course & Med Decision Making Pertinent Labs and Imaging studies reviewed. (See chart for details) This is a 42-year-old male patient presented to the ED today with ongoing cough for 1 week. Patient was diagnosed with influenza last week. Chest x-ray interpreted by Dr. Wallace is negative for any acute findings. His vitals are stable in the ED with O2 sats at 97% on room air. He is a smoker, encouraged to consider smoking cessation. Discharged with a Z-Lai, albuterol inhaler prednisone Tessalon Perles. Follow-up with the PCP in 1-2 weeks. Dragon Disclaimer Dragon Disclaimer This electronic medical record was generated, in whole or in part, using a voice recognition dictation system. Departure Departure Impression: Primary Impression: Acute bronchitis Additional Impression: Smoking addiction Disposition: HOME, SELF-CARE Condition: STABLE Referrals: SAMIRA ALFARO DO (PCP) Follow up in the course of next week Patient Instructions: Acute Bronchitis, Smoking Cessation Additional Instructions: You were elevated in the emergency room and noted to have bronchitis. Consider smoking cessation. Symptoms from influenza will hopefully clear off in the next 1-2 weeks. Try to push fluids. Follow-up with your own doctor in the course of next week. Scripts Azithromycin (ZITHROMAX) 250 Mg Tablet 1 PKG PO UD, #1 PKG Prov: MUTUNGA,JENNY AUTOMOTIVE MACHINIST APPRENTICE 10/24/18 Prednisone (PREDNISONE) 50 Mg Tablet 1 TAB PO DAILY, #5 TAB Prov: MUTUNGA,JENNY AUTOMOTIVE MACHINIST APPRENTICE 10/24/18 Benzonatate (TESSALON PERLE) 100 Mg Capsule 1 CAP PO TID, #30 CAP Prov: MUTUNGA,JENNY AUTOMOTIVE MACHINIST APPRENTICE 10/24/18 Albuterol Sulfate (VENTOLIN HFA INHALER) 18 Gm Hfa.aer.ad 2 PUFF INH Q4HRS for FOR ASTHMA, #1 INHALER 0 Refills Prov: JENNY FRANK APRN 10/24/18 Problem Qualifiers Primary Impression: Acute bronchitis Bronchitis organism: unspecified organism Qualified Codes: J20.9 - Acute bronchitis, unspecified JENNY FRANK APRN Oct 24, 2018 20:33
--- NOTE | 2018-10-25 00:22 | RAD ---
CHEST PA LATERAL History: Flu like symptoms x a week Comparison: AP chest October 18, 2018. Findings: The cardiomediastinal silhouette is normal. There is bilateral peribronchial thickening. There is mild right lower lobe airspace disease. No pleural effusion or pneumothorax is seen. There is no acute bone abnormality. IMPRESSION: Bilateral bronchitis. Possible early pneumonia in the right lower lobe. Electronically signed by: Bigg Macias MD (10/25/2018 12:18 AM) [facility]
== END 2018-10-24 21:03 | disposition home or self-care (01) ==
LOC: ER 19:04
DX: J20.9 Acute bronchitis, unspecified (principal); F17.200 Nicotine dependence, unspecified, uncomplicated; M19.90 Unspecified osteoarthritis, unspecified site; K21.9 Gastro-esophageal reflux disease without esophagitis; G43.909 Migraine, unspecified, not intractable, without status migrainosus; G89.29 Other chronic pain; Z90.49 Acquired absence of other specified parts of digestive tract
CPT/HCPCS: 71046; 99283

== ENCOUNTER 2019-02-06 17:00 | Emergency (ER) | payer SELFPAY ==
[~2019-02-06] VITALS: Ht 185.4 cm; Wt 145.1 kg
[~2019-02-06 17:00] MED LIST changes: +AZIT250T PO; +BENZ100C PO; +PRED50TA PO; +VENTOLIN HFA18 GM INH
[2019-02-06 17:29] VITALS: BP 155/80
[2019-02-06] MEDS ORDERED: DICL50TA4 PO (18:28)
--- NOTE | 2019-02-06 18:28 | PHYS DOC ---
Past Medical History Past Medical History: Arthritis, Fibromyalgia, Gallstones, GERD, Migraines, Other Additional Past Medical Histor: chronic knee pain Past Surgical History: Cholecystectomy Alcohol Use: None Drug Use: None Adult General Chief Complaint Chief Complaint: LOWER EXT PAIN HPI HPI Patient is a 43 year old male who presents to the ED today complaining of 10 out of 10 left lateral knee pain that began yesterday after he walked 10-13 steps. Patient denies falling. Denies twisting his leg. States the pain is worse on weight bearing. Describes the pain as sharp and intermittent. Denies anything specifically alleviating the pain. Review of Systems Review of Systems Constitutional: Denies fever or chills [] Musculoskeletal: Reports left knee pain Integument: Denies rash or skin lesions [] Neurologic: Denies headache, focal weakness or sensory changes [] All other systems were reviewed and found to be within normal limits, except as documented in this note. Allergies Allergies Allergies Coded Allergies Type Severity Reaction Last Updated Verified No Known Drug Allergies 02/13/17 No Physical Exam Physical Exam Constitutional: Well developed, well nourished, no acute distress, non-toxic appearance. [] Skin: Warm, dry, no erythema, no rash. [] Back: No tenderness, no CVA tenderness. [] Extremities: Left knee with no obvious deformity, no obvious edema or ecchymosis. Tenderness diffusely on the medial aspect of the left knee. Tenderness on the lateral aspect, no laxity knee. +2 left pedal pulse. Cap refill less than 2 seconds left toes. Sensation intact to the left lower extremity Neurologic: Alert and oriented X 3, normal motor function, normal sensory function, no focal deficits noted. [] Psychologic: Affect normal, judgement normal, mood normal. [] Current Patient Data Vital Signs Vital Signs Date Time Temp Pulse Resp B/P (MAP) Pulse Ox O2 Delivery O2 Flow Rate FiO2 02/06/19 17:29 98.7 103 16 155/80 (105) 98 Room Air 98.7 EKG EKG [] Radiology/Procedures Radiology/Procedures [] Course & Med Decision Making Course & Med Decision Making Pertinent Labs and Imaging studies reviewed. (See chart for details) This is a 43-year-old male patient presented to the ED today with left knee pain after walking up some steps. Left knee x-rays are negative for any acute findings. Matt bandage applied to the left knee by the optometric technologist, neurovascular exam is intact. Ice elevation encouraged. Diclofenac for pain. Follow-up with orthopedic doctor in one week. Trista Disclaimer Trista Disclaimer This electronic medical record was generated, in whole or in part, using a voice recognition dictation system. Departure Departure Impression: Primary Impression: Left knee pain Disposition: HOME, SELF-CARE Condition: STABLE Referrals: SAMIRA ALFARO DO (PCP) EULALIO BRISCOE II, MD Follow up in one week Patient Instructions: Knee Pain, [id number] Additional Instructions: You were evaluated in the medicine for left knee pain, and left knee x-rays are negative for any acute findings. We provided you an Matt bandage in the emergency room, use it as tolerated and needed. Try to ice and elevate the extremity. Take the prescribed medication as needed for pain. Follow-up with the provided orthopedic doctor in one week. Scripts Diclofenac Sodium (DICLOFENAC SODIUM) 50 Mg Tablet.dr 1 TAB PO BID, #20 TAB 0 Refills Prov: JENNY FRANK APRN 02/06/19 Problem Qualifiers Primary Impression: Left knee pain Chronicity: acute Qualified Codes: M25.562 - Pain in left knee MARIA GJENNY JENNINGS GERMÁN Feb 06, 2019 18:28
--- NOTE | 2019-02-07 00:04 | RAD ---
Left knee 4 views: Reason for examination: Atraumatic left knee pain for one day. No fracture or dislocation is seen. The bone density is normal. No abnormal periosteal reaction is seen. Joint spaces are maintained. There is suggestion of a small 2.5 mm calcific in the lateral joint compartment which could reflect some chondrocalcinosis or a small joint body. No gross joint effusion is seen. IMPRESSION: Small 2.5 mm calcific density in the lateral joint compartment which could reflect some chondrocalcinosis or a small joint body. Electronically signed by: Buffy Ugalde MD (02/07/2019 12:01 AM) [facility]
== END 2019-02-06 18:45 | disposition home or self-care (01) ==
LOC: ER 17:00
DX: M25.562 Pain in left knee (principal); M19.90 Unspecified osteoarthritis, unspecified site; K21.9 Gastro-esophageal reflux disease without esophagitis; G89.29 Other chronic pain; G43.909 Migraine, unspecified, not intractable, without status migrainosus; Z90.49 Acquired absence of other specified parts of digestive tract
CPT/HCPCS: 73562; 99284-25

== ENCOUNTER 2019-05-12 23:00 | Emergency (ER) | payer SELFPAY ==
[~2019-05-12] VITALS: Ht 185.4 cm; Wt 145.1 kg
[~2019-05-12 23:00] MED LIST changes: +DICL50TA4 PO; -PANT40TA5 PO; +PANT40TA77 PO
[2019-05-12 23:45] VITALS: BP 144/98
[2019-05-12] MEDS ORDERED: METH4TAB2 PO (23:58)
--- NOTE | 2019-05-12 23:59 | PHYS DOC ---
Past Medical History Past Medical History: Arthritis, Fibromyalgia, Gallstones, GERD, Migraines, Other Additional Past Medical Histor: chronic knee pain Past Surgical History: Cholecystectomy Alcohol Use: None Drug Use: None Adult General Chief Complaint Chief Complaint: OTHER COMPLAINTS [facility] HPI Patient is a 43 year old male who presents with right thumb numbness and tingling that will radiate up the right arm especially when he leans his wrists down onto a table. Patient is right-handed. Patient states is been more of the last week. He is also given a new hobby of customize seen like her machines and is been using a Dremel. Patient currently has 0 out of 10 pain. Radial pulses strong and present. There is some tenderness with palpation at the radial pulse tight but not in the hand. Negative Tinel sign. Patient has no tenderness up the arm with palpation. There is no acute deformities, bruising, swelling. Skin is pink warm and dry. Cap refill is less than 3 seconds. Patient states he also has a right rotator cuff tear that he needs to have fixed. Patient has all sensations at this time. Patient states she's been taking ibuprofen or Advil for his pain. Patient does have a appointment for primary care doctor on June 01. Patient is given a Medrol Dosepak and told to continue taking Advil. Patient is told that this could most likely have started to occur because he started using a Dremel everyday. Review of Systems Review of Systems Constitutional: Denies fever or chills [] Eyes: Denies change in visual acuity, redness, or eye pain [] HENT: Denies nasal congestion or sore throat [] Respiratory: Denies cough or shortness of breath [] Cardiovascular: No additional information not addressed in HPI [] GI: Denies abdominal pain, nausea, vomiting, bloody stools or diarrhea [] : Denies dysuria or hematuria [] Musculoskeletal: Tingling and numbess to right thumb that shoots up right forearm. Denies back pain or joint pain [] Integument: Denies rash or skin lesions [] Neurologic: Denies headache, focal weakness or sensory changes [] Endocrine: Denies polyuria or polydipsia [] All other systems were reviewed and found to be within normal limits, except as documented in this note. Allergies Allergies Allergies Coded Allergies Type Severity Reaction Last Updated Verified No Known Drug Allergies 02/13/17 No Physical Exam Physical Exam Constitutional: Well developed, well nourished, no acute distress, non-toxic appearance. [] HENT: Normocephalic, atraumatic, bilateral external ears normal, oropharynx moist, no oral exudates, nose normal. [] Eyes: PERRLA, EOMI, conjunctiva normal, no discharge. [] Neck: Normal range of motion, no tenderness, supple, no stridor. [] Cardiovascular:Heart rate regular rhythm, no murmur [] Lungs & Thorax: Bilateral breath sounds clear to auscultation [] Abdomen: Bowel sounds normal, soft, no tenderness, no masses, no pulsatile masses. [] Skin: Warm, dry, no erythema, no rash. [] Back: No tenderness, no CVA tenderness. [] Extremities: Radial wrist tenderness with palpation. no cyanosis, no clubbing, ROM intact, no edema. [] Neurologic: Alert and oriented X 3, normal motor function, normal sensory function, no focal deficits noted. [] Psychologic: Affect normal, judgement normal, mood normal. [] EKG EKG [] Radiology/Procedures Radiology/Procedures [] Course & Med Decision Making Course & Med Decision Making Patient is a 43 year old male who presents with right thumb numbness and tingling that will radiate up the right arm especially when he leans his wrists down onto a table. Patient is right-handed. Patient states is been more of the last week. He is also given a new hobby of customize seen like her machines and is been using a Dremel. Patient currently has 0 out of 10 pain. Radial pulses strong and present. Equal turret lathe tender and strengths. There is some tenderness with palpation at the radial pulse tight but not in the hand. Negative Tinel sign. Patient has no tenderness up the arm with palpation. No swelling or redness to the hand to suggest infection. No wounds. There is no acute deformities, bruising, swelling. Skin is pink warm and dry. Cap refill is less than 3 seconds. Patient states he also has a right rotator cuff tear that he needs to have fixed. Patient has all sensations at this time. Patient states she's been taking ibuprofen or Advil for his pain. Patient does have a appointment for primary care doctor on June 01. Intact ROM in right wrist, fingers, shoulder and elbow. Patient is given a Medrol Dosepak and told to continue taking Advil. Patient is told that this could most likely have started to occur because he started using a Dremel everyday. Patient To follow-up with his primary care provider. Trista Disclaimer Trista Disclaimer This electronic medical record was generated, in whole or in part, using a voice recognition dictation system. Departure Departure Impression: Primary Impression: Neuralgia Disposition: 01 HOME, SELF-CARE Condition: STABLE Referrals: SAMIRA ALFARO DO (PCP) Patient Instructions: Pain, Neuropathic Additional Instructions: Follow-up with her primary care provider. Take medication as prescribed. Continue taking Advil. Scripts Methylprednisolone (MEDROL) 4 Mg Tab.ds.pk 1 PKG PO UD, #1 PKG Prov: SANCHEZ HURST APRN 05/12/19 SANCHEZ HURST APRN May 12, 2019 23:59
== END 2019-05-13 00:05 | disposition home or self-care (01) ==
LOC: ER 23:00
DX: M79.2 Neuralgia and neuritis, unspecified (principal); R20.0 Anesthesia of skin; R20.2 Paresthesia of skin; M19.90 Unspecified osteoarthritis, unspecified site; K21.9 Gastro-esophageal reflux disease without esophagitis; G43.909 Migraine, unspecified, not intractable, without status migrainosus; G89.29 Other chronic pain
CPT/HCPCS: 99283

== ENCOUNTER → 2019-12-07 | Outpatient (CLI) | payer OTHER ==
[~2019-12-07] MED LIST changes: +METH4TAB2 PO
--- NOTE | 2019-12-08 08:33 | RAD ---
Examination: KNEE BILAT 3V History: Degenerative joint disease pain Comparison/Correlation: 02/06/2019 left knee x-ray exam Findings: Bilateral Knee 3 View X ray exam was performed. Joint spaces are normal. No acute fracture or bone destruction. Soft tissues are unremarkable. No definite or significant degenerative changes. No definite findings to suggest joint effusion. Impression: No suspicious process. Electronically signed by: Brian Sibley MD (12/08/2019 8:30 AM) [facility]
== END | disposition home or self-care (01) ==
LOC: RAD 11:32
PROVIDERS: ATTEND Family Medicine
DX: M25.561 Pain in right knee (principal); M25.562 Pain in left knee
CPT/HCPCS: 73562

== ENCOUNTER 2020-01-11 22:17 | Emergency (ER) | payer SELFPAY ==
[~2020-01-11] VITALS: Ht 185.4 cm; Wt 161.8 kg
[2020-01-11 22:52] VITALS: BP 152/80
--- NOTE | 2020-01-11 23:09 | PHYS DOC ---
Past Medical History Past Medical History: Arthritis, Fibromyalgia, Gallstones, GERD, Migraines, Other Additional Past Medical Histor: chronic knee pain (SANCHEZ HURST APRN) Past Surgical History: Cholecystectomy (SANCHEZ HURST APRN) Smoking Status: Current Every Day Smoker Alcohol Use: None Drug Use: None (SANCHEZ HURST APRN) Attending Signature I have participated in the care of this patient and I have reviewed and agree with all pertinent clinical information above including history, exam, and recommendations. (ASCENCION GOODMAN MD) Adult General Chief Complaint Chief Complaint: MULTIPLE COMPLAINTS HPI HPI Patient is a 44 year old male who presents with for the last 2 months patient has had right elbow pain especially when he moves it or he hits it is a sharp shooting pain. Patient has been using a drummel a lot and there is a lot of vibration with that and he uses the right hand to do so. The pain is started ever since he is used the drummel. Patient states he also has left ankle pain that pops and hurts more when he is up and walking for the last 2 months. He denies any current injury. He does have a history of arthritis and fibromyalgia. Patient states he is trying to get on disability. Patient states that he has not been taking anything to help his pain. Ambulatory with a steady gait. Rates his pain a 9 out of 10. (SANCHEZ HURST APRN) Review of Systems Review of Systems Musculoskeletal: Denies back pain. Right elbow and left ankle joint pain [] All other systems were reviewed and found to be within normal limits, except as documented in this note. (SANCHEZ HURST APRN) Allergies Allergies Allergies Coded Allergies Type Severity Reaction Last Updated Verified No Known Drug Allergies 02/13/17 No (ASCENCION GOODMAN MD) Physical Exam Physical Exam Constitutional: Well developed, well nourished, no acute distress, non-toxic appearance. [] HENT: Normocephalic, atraumatic, bilateral external ears normal, oropharynx moist, no oral exudates, nose normal. [] Eyes: PERRLA, EOMI, conjunctiva normal, no discharge. [] Neck: Normal range of motion, no tenderness, supple, no stridor. [] Cardiovascular:Heart rate regular rhythm, no murmur [] Lungs & Thorax: Bilateral breath sounds clear to auscultation [] Abdomen: Bowel sounds normal, soft, no tenderness, no masses, no pulsatile masses. [] Skin: Warm, dry, no erythema, no rash. [] Back: No tenderness, no CVA tenderness. [] Extremities: No tenderness, no cyanosis, no clubbing, ROM intact, no edema. [] Neurologic: Alert and oriented X 3, normal motor function, normal sensory function, no focal deficits noted. [] Psychologic: Affect normal, judgement normal, mood normal. Normal Physical Exam[] (SANCHEZ HURST APRN) Current Patient Data Vital Signs Vital Signs Date Time Temp Pulse Resp B/P (MAP) Pulse Ox O2 Delivery O2 Flow Rate FiO2 01/11/20 22:52 98.4 106 20 152/80 (104) 98 Room Air 98.4 (ASCENCION GOODMAN MD) EKG EKG [] (SANCHEZ HURST APRN) Radiology/Procedures Radiology/Procedures [] (SANCHEZ HURST APRN) Course & Med Decision Making Course & Med Decision Making Pertinent Labs and Imaging studies reviewed. (See chart for details) Patient states he tries not to walk as much as possible but when he has to get up and walk is [facility] and that is when it starts to hurt him. He states that he feels as though the right elbow is swollen. No swelling is seen when compared to the left arm. Patient is full range of motion of the elbow. He denies any injury. There is no pain with palpation or bruising or deformity or swelling to the joint. No redness or heat. 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 Vital signs are within normal limits. No tenderness with palpation to the patient's ankle and there is no swelling or deformity or bruising or redness to the joint. Patient can flex the foot and has full range of motion of the joint. Patient can wiggle his toes. Strong pedal pulse. Cap refill less than 3 seconds in all extremities. Skin pink warm and dry. Patient is educated to take ibuprofen for his pains regularly. Patient is educated that he also needs to go to his primary care provider since these are chronic issues. I have medically screened the patient and patient is educated on buying a splint or using an matt wrap for his ankle or he can follow- up with orthopedics if it continues to bother him. No laxity in any joints. [] (SANCHEZ HURST APRN) Dragon Disclaimer Dragon Disclaimer This electronic medical record was generated, in whole or in part, using a voice recognition dictation system. (SANCHEZ HURST APRN) Departure Departure Impression: Primary Impression: Encounter for medical screening examination Disposition: HOME, SELF-CARE Condition: STABLE Referrals: SAMIRA ALFARO DO (PCP) EULALIO BRISCOE II, MD Patient Instructions: Medical Screening Exam Additional Instructions: Use an Matt wrap or splinting device as we spoke of. Take ibuprofen as we spoke of. Follow-up with orthopedics or your primary care provider. SANCHEZ HURST APRN Jan 11, 2020 23:09 ASCENCION GOODMAN MD Jan 12, 2020 02:24
== END 2020-01-11 23:12 | disposition home or self-care (01) ==
LOC: ER 22:17
DX: M25.521 Pain in right elbow (principal); M25.572 Pain in left ankle and joints of left foot; M19.90 Unspecified osteoarthritis, unspecified site; M79.7 Fibromyalgia; K21.9 Gastro-esophageal reflux disease without esophagitis; G43.909 Migraine, unspecified, not intractable, without status migrainosus; F17.200 Nicotine dependence, unspecified, uncomplicated; G89.29 Other chronic pain; Z87.442 Personal history of urinary calculi
CPT/HCPCS: 99281